=== PATIENT | male | born 1955 | race Caucasian/White ===

== ENCOUNTER 2016-06-03 11:40 | Inpatient (IN) | payer BC ==
--- NOTE | 2016-06-03 12:04 | HP ---
SUPERVISING PHYSICIAN: Edmar Holland M.D. CHIEF COMPLAINT: Coughing and congestion. HISTORY OF PRESENT ILLNESS: This is a 61 year-old male patient who was being seen in Dr. Holland' office today. On 05/25/16, he saw the Nurse Practitioner in clinic and was given steroids and antibiotics. He did not get any better and he has progressively worsened to the point that his coughing and congestion is keeping his up at night, plus he says he is very weak and having a very difficult time breathing. Dr. Holland sent him over to the hospital for direct admission. At [facility], his WBCs were 14.2, hemoglobin 11.5, hematocrit 34.2. Flu A and B were negative. A chest x-ray was done. He was admitted for pneumonitis with previously failed outpatient therapy with steroids and antibiotics. PAST MEDICAL HISTORY: 1. Congestive heart failure of unknown etiology with a ejection fraction of 50 %. 2. Diabetes. 3. Gastroparesis. 4. Hyperlipidemia. 5. Hypertension. 6. Coronary artery disease. 7. Chronic renal failure. 8. Rheumatoid arthritis. PAST SURGICAL HISTORY: 1. Coronary artery bypass in 2008. 2. Back surgery in 1988. 3. Basal cell skin cancer removal in 2011. 4. Glaucoma surgery in 2013. OUTPATIENT MEDICATIONS: Per the EMR and awaiting verification. ALLERGIES: NONE, BUT HE DOES HAVE AN ADVERSE REACTION TO KIMBERLYN INHIBITORS WHICH PRODUCES A COUGH. SOCIAL HISTORY: He is an electric motor termite technician. He is . He has one daughter. He denies any ETOH, tobacco or illicit drug use. REVIEW OF SYSTEMS: GENERAL: He complains of fever, fatigue but denies chills and any weight changes. HEENT: Complains of changes in the way food tastes, nasal congestion and postnasal drip. Denies any vision changes, ear pain or sore throat. RESPIRATORY: As per the history of present illness. CARDIAC: Denies chest pain, tachycardia or palpitations. GASTROINTESTINAL: Denies nausea , vomiting, diarrhea, constipation or abdominal pain. NEUROLOGIC: Denies dizziness, headaches or seizures. EXTREMITIES: Denies any swelling. PHYSICAL EXAMINATION: GENERAL: This is a 61 year-old male patient who is sitting up in his hospital bed. He appears minimally ill. HEENT: Normocephalic and atraumatic. Pupils are equal and reactive. Oropharynx is clear. Oral mucous membranes are moist. NECK: Supple without mass. CHEST: He has coarse breath sounds throughout as well as rhonchi and diffuse expiratory wheezing. CARDIOVASCULAR: Regular rate and rhythm. ABDOMEN: Soft, nondistended, non-tender. Bowel sounds are positive. EXTREMITIES: No cyanosis, clubbing or edema. NEUROLOGIC: He is awake, alert and oriented times three. LABORATORY AND FILMS: As per the History of Present Illness. ASSESSMENT: 1. Pneumonitis with failed outpatient treatment including steroids and antibiotics. 2. Cough and congestion. 3. Leukocytosis. 4. Diabetes. 5. Hypertension. 6. Congestive heart failure with unknown etiology and an ejection fraction of 50% in 2009. 7. History of chronic renal insufficiency. PLAN: We will admit the patient to the hospital. He will be given aggressive pulmonary toilet and DuoNeb breathing treatments. I will start him on Levaquin IV antibiotics. I will hold off on the steroids for now and hopefully he will not need them with the aggressive pulmonary toilet. I have also started Mucinex. He is on Tresiba long-acting insulin and he does very well on it. He usually takes about 60 units at night. After a lengthy discussion with him about his blood sugars, I will given him 40 units of Tresiba tonight and we will also place him on our sliding scale insulin protocol. Will restart his home medications with the exception of his Humalog and the full dosing of his Tresiba. I have ordered labs and a chest x-ray for in the morning. We will continue to monitor the patient closely and followup as needed. Dr. Holland is the collaborating physician available for consultation. #[id number] [facility]
[2016-06-03] MEDS ORDERED: DEXTROSE 50% 25 GM/50 ML SYG IV PRN (12:47)
[2016-06-03] MEDS ORDERED: GLUCAGON INJ 1 MG VIAL SUBCU PRN (12:47)
[2016-06-03] MEDS ORDERED: SODIUM CHLORIDE 0.9% (FLUSH) 10 ML SYG IV PRN (12:53)
[2016-06-03] MEDS ORDERED: ALBUTEROL SULFATE 2.5 MG/3 ML VIAL NEB PRN (12:53)
[2016-06-03] MEDS ORDERED: ACETAMINOPHEN 325 MG TAB PO PRN (12:53)
[2016-06-03] MEDS ORDERED: IV SET AND CAP CHANGE INJ INJ SCH (13:00)
[2016-06-03] MEDS: IPRATROPIUM/ALBUTEROL 3 ML VIAL INH SCH ×3 (13:49→20:30)
[2016-06-03] MEDS: INSULIN LISPRO 100 UNITS/ML PEN SUBCU SCH ×2 (17:08→21:17)
[2016-06-03] MEDS: CLOPIDOGREL 75 MG TAB PO SCH ×2 (18:15→18:26)
[2016-06-03] MEDS ORDERED: METOPROLOL TARTRATE 50 MG TAB PO ONE ×2 (19:23→23:00)
[2016-06-03] MEDS ORDERED: cloNIDine HCL 0.1 MG TAB PO ONE (19:24)
[2016-06-03] MEDS ORDERED: levoFLOXacin 500MG IV 100 ML IVPB ONE (19:34)
[2016-06-03] MEDS: levoFLOXacin 500MG IV 500 MG in PREMIX BAG 1 BAG IVPB SCH (19:36)
[2016-06-03] MEDS: ENOXAPARIN SODIUM 40 MG/0.4 ML SYG SUBCU SCH (19:37)
[2016-06-03] MEDS: PANTOPRAZOLE SODIUM IV 40 MG VIAL IV SCH (19:37)
[2016-06-03] MEDS ORDERED: NIFEdipine XL 30 MG TAB PO ONE (20:39)
[2016-06-03] MEDS ORDERED: sulfaSALAzine TAB 500 MG TAB ONE (20:39)
[2016-06-03] MEDS ORDERED: NIFEDIPINE 30 MG PO SCH (21:00)
[2016-06-03] MEDS ORDERED: NON-FORMULARY MEDICATION 1 EA MIS SUBCU ONE (21:00)
[2016-06-03] MEDS ORDERED: OPTH BOTH_EYES SCH (21:00)
[2016-06-03] MEDS ORDERED: [UNRECOGNIZED DRUG - OTHER] BOTH_EYES SCH (21:00)
[2016-06-03] MEDS ORDERED: LATANOPROST 0.005% BOTH_EYES SCH (21:00)
[2016-06-03] MEDS: TEMAZEPAM 15 MG CAP PO SCH (21:07)
[2016-06-03] MEDS: guaiFENesin ER TAB 600 MG TAB PO SCH (21:07)
[2016-06-03] MEDS: SODIUM CHLORIDE 0.9% (FLUSH) 10 ML SYG IV SCH (21:12)
[2016-06-03] MEDS: SULFADIAZINE 500 MG PO SCH (21:16)
[2016-06-04] MEDS: IPRATROPIUM/ALBUTEROL 3 ML VIAL INH SCH ×6 (00:45→20:35)
[2016-06-04] MEDS: INSULIN LISPRO 100 UNITS/ML PEN SUBCU SCH ×5 (07:33→18:01)
[2016-06-04] MEDS ORDERED: POTASSIUM CHLORIDE 20 MEQ TAB PO ONE (07:57)
[2016-06-04] MEDS ORDERED: ATENOLOL 25 MG TAB ONE (08:25)
[2016-06-04] MEDS ORDERED: BIFIDOBACTERIUM INFANTIS 4 MG CAP ONE (08:25)
[2016-06-04] MEDS ORDERED: NIFEdipine XL 30 MG TAB PO SCH (09:00)
[2016-06-04] MEDS ORDERED: FENOFIBRATE 48 MG PO SCH ×2 (09:00→22:00)
[2016-06-04] MEDS: CLOPIDOGREL 75 MG TAB PO SCH (09:45)
[2016-06-04] MEDS: METOPROLOL TARTRATE 50 MG TAB PO SCH ×3 (09:45→22:23)
[2016-06-04] MEDS: guaiFENesin ER TAB 600 MG TAB PO SCH ×2 (09:45→22:22)
[2016-06-04] MEDS: ASPIRIN EC 81 MG TAB PO SCH (09:45)
[2016-06-04] MEDS: SODIUM CHLORIDE 0.9% (FLUSH) 10 ML SYG IV SCH ×2 (09:47→20:30)
[2016-06-04] MEDS: SULFADIAZINE 500 MG PO SCH ×2 (09:48→18:45)
[2016-06-04] MEDS ORDERED: levoFLOXacin 500MG IV 100 ML IVPB ONE (15:10)
[2016-06-04] MEDS: LOSARTAN POTASSIUM 100 MG TAB PO SCH (17:46)
[2016-06-04] MEDS: levoFLOXacin 500MG IV 500 MG in PREMIX BAG 1 BAG IVPB SCH (18:34)
[2016-06-04] MEDS: NIFEdipine XL 30 MG TAB PO SCH (18:34)
[2016-06-04] MEDS: PANTOPRAZOLE SODIUM IV 40 MG VIAL IV SCH (20:29)
[2016-06-04] MEDS: ENOXAPARIN SODIUM 40 MG/0.4 ML SYG SUBCU SCH (20:30)
[2016-06-04] MEDS ORDERED: OPTH BOTH_EYES SCH (21:00)
[2016-06-04] MEDS ORDERED: NON-FORMULARY MEDICATION 1 EA MIS SUBCU SCH (21:00)
[2016-06-04] MEDS ORDERED: LATANOPROST 0.005% BOTH_EYES SCH (21:00)
[2016-06-04] MEDS: TEMAZEPAM 15 MG CAP PO SCH (22:24)
[2016-06-04] MEDS ORDERED: HYDROcodone 10MG/APAP 325MG 1 EA TAB PO ONE (22:28)
--- NOTE | 2016-06-04 23:12 | PCM.CORE ---
Physician DVT/VTE - Prophylaxis Currently: Patient already on anticoagulation therapy - Nurse DVT Assessment & Total Each Risk Factor Represents 3 Points: Medical PT with Hx of ID, CHF, Severe infection/sepsis Each Risk Factor Represents 2 Points: Age 60-74 DVT Assessment Score: 5 - 5 or more Very High Risk Treatments: Early Ambulation *, Sequential Compression Device
[2016-06-04] MEDS ORDERED: CLOPIDOGREL 75 MG TAB ONE (23:34)
[2016-06-05] MEDS: IPRATROPIUM/ALBUTEROL 3 ML VIAL INH SCH ×3 (00:30→08:28)
[2016-06-05 04:18] VITALS: TEMP 97.9
[2016-06-05] MEDS: NIFEdipine XL 30 MG TAB PO SCH (06:06)
[2016-06-05] MEDS: METOPROLOL TARTRATE 50 MG TAB PO SCH (06:07)
[2016-06-05] MEDS: SULFADIAZINE 500 MG PO SCH (06:07)
[2016-06-05] MEDS ORDERED: CLOPIDOGREL 75 MG TAB PO SCH (07:00)
--- NOTE | 2016-06-05 07:00 | RAD ---
EXAM: Two view chest. INDICATION: Chest pain. COMPARISON: Chest x-ray: 06/04/2016. FINDINGS: Cardiac silhouette: Unremarkable. Crista: Unremarkable. Lobar consolidation: None.Pleural effusion: None.Pneumothorax: None.Other: Median sternotomy wires are noted Bones: Unremarkable. Other: None. IMPRESSION: 1. No acute cardiopulmonary process. Electronically signed by: Almas Salcedo MD 06/05/2016 6:59 AM LIQUID WASTE TREATMENT PLANT OPERATOR
[2016-06-05 07:29] VITALS: BP 181/95; O2SAT 97
[2016-06-05] MEDS: INSULIN LISPRO 100 UNITS/ML PEN SUBCU SCH (07:33)
--- NOTE | 2016-06-05 08:47 | PN ---
SUPERVISING PHYSICIAN: Edmar Holland MD DATE: 06/04/16 SUBJECTIVE: The patient is sitting up in his bed. He still complains of coughing a lot as well as coughing up quite a bit of sputum but he does report that he feels much better today. He denies any chest pain, abdominal pain, he does not like the food that he is eating and his blood sugars have been very labile but every time he is sick he says he has the same problem. OBJECTIVE: VITAL SIGNS: He is afebrile. Heart rate 64, blood pressure 165/85, respiratory rate 20, 02 saturation 92% on room air. RESPIRATORY: Bilateral scattered rhonchi but there is no expiratory wheezing. CARDIAC: Regular rate and rhythm. ABDOMEN: Soft, nondistended, non-tender. Bowel sounds are positive. EXTREMITIES: No cyanosis, clubbing, or edema. NEUROLOGICAL: He is awake, alert, and oriented x3. LABORATORY: WBC 9.3, hemoglobin 11.8, hematocrit 35.1, potassium 3.2, creatinine 1.46, glucose 60. Preliminary blood cultures show no growth after 24 hours. All other labs and films have been reviewed via the EMR. ASSESSMENT: 1. Pneumonitis with failed outpatient treatment including steroids and antibiotics. 2. Cough and congestion. 3. Leukocytosis that has improved. 4. Diabetes. 5. Hypertension. 6. Congestive heart failure with unknown etiology and an ejection fraction of 50% in 2008. 7. History of chronic renal insufficiency. PLAN: I have given him some additional potassium this morning. He was given 40 units of his Tresiba last night and his usual dosing is 60 but he is not eating very well here at the hospital. Tonight we will give him 50 of Tresiba, I will also add back his routine Humalog insulin before his meals. His normal dosing is 25 and due to his poor appetite we will do 20 units before meals. He is improving on a daily basis. We will ambulate him, make sure that his oxygen saturations do not fall. We will do an ambulation study in the morning and make sure his titrations do not drop. Hopefully, he can go home tomorrow on a few additional days of Levaquin. He will need close followup with Dr. Holland. I will repeat his lab and x-ray in the morning. We will continue to monitor the patient closely and followup as needed. #[id number] [facility]
[2016-06-05] MEDS ORDERED: hydroCHLOROthiazide 12.5 MG CAP PO SCH (09:00)
[2016-06-05] MEDS: LOSARTAN POTASSIUM 100 MG TAB PO SCH (09:51)
[2016-06-05] MEDS: ASPIRIN EC 81 MG TAB PO SCH (09:51)
[2016-06-05] MEDS: SODIUM CHLORIDE 0.9% (FLUSH) 10 ML SYG IV SCH (09:52)
[2016-06-05] MEDS: guaiFENesin ER TAB 600 MG TAB PO SCH (09:52)
--- NOTE | 2016-06-06 13:59 | DS ---
SUPERVISING PHYSICIAN: Kelvin Nunez M.D. DISCHARGE DIAGNOSIS: 1. Pneumonitis/bronchitis having failed outpatient treatment including steroids and antibiotics. 2. Cough and congestion secondary to number 1. 3. Leukocytosis secondary to number 1, resolved. 4. Diabetes mellitus type 2. 5. Hypertension. 6. Congestive heart failure with unknown etiology with an ejection fraction of 50% last noted in 2008. 7. History of chronic renal insufficiency. HISTORY OF PRESENT ILLNESS: Mr. Wolf is a 61 year-old male patient that was admitted on 06/03/16. He was seen in Dr. Holland' office on 05/25/16 by the Nurse Practitioner in clinic and was given steroids and antibiotics. He had not gotten any better and has progressively worsened to the point that his coughing and congestion is keeping his up all night, plus he noted he was very weak and having a very difficult time breathing. He was seen in Dr. Holland ' office who sent him over to the hospital for direct admission. At [facility] , his white count was 14.2, hemoglobin 11.5, hematocrit 34.2. Flu A and B were negative. A chest x-ray was done. He was admitted in stable condition for having failed outpatient treatment for pneumonitis/bronchitis having been on steroids and antibiotics. LABORATORY: On admission, his white count was 9.3, at discharge it stabilized and was 7.9, hemoglobin and hematocrit were both stable at 10.7 and 32.1. Platelet count was within normal limits as well as his differential showed no left shift. Chemistries on admission showed a lot potassium at 3.2 with BUN 12 , creatinine 1.4, glucose 60. Liver functions showed to be within normal limits. Through the admission and treatment, he did show improvement in electrolytes. At time of discharge, his electrolytes normalized. Potassium was 3.9, BUN and creatinine were stable at 14 and 1.45. Glucoses did show elevation secondary to his corticosteroids after he was started on his home medications and management did show improvement, at time of discharge was 144. Highest glucose noted was 375 with the lowest being 43. MICROBIOLOGY: He had 2 sets of blood cultures that remained negative at 48 hours at discharge. RADIOLOGY: He had a chest x-ray on admission to the Medical/Surgical floor and per radiology interpretation showed no acute cardiopulmonary processes. No pneumothorax. No consolidations or pleural effusions. HOSPITAL COURSE: Mr. Wolf is a 61 year-old male patient that recommended from Dr. Holland' office as noted in the History of Present Illness, having failed to respond to outpatient treatment plan for pneumonitis/ bronchitis with steroids and antibiotics. He was admitted in stable condition and started on aggressive pulmonary toiletry with DuoNeb breathing treatments. He was also started on Levaquin. No additional steroids were administered. He was also on Tresiba long-acting insulin as well as was administering 40 and 60 units, and on a sliding scale. He did well with aggressive pulmonary hygiene. Initially vital signs on admission showed him to be satting 95% on room air during treatment and hospitalization. At time of discharge, he was satting 97% on room air. Blood pressure was somewhat elevated at discharge at 181/95. Respirations were 18. He was afebrile through the entire hospitalization stay. On discharge, he was felt clinically well enough to be discharged for continuation as an outpatient. PLAN: Mr. Wolf was discharged to have close clinical followup with Dr. Holland in 7 days or earlier if needed. He was instructed to call Dr. Holland' office on Wednesday to have a followup appointment scheduled. He was instructed to resume all of his home medications as previously started and to start new medications to include continued Levaquin and Albuterol nebulizer treatments. He was to utilize his nebulizer as instructed, continue with his pulmonary exercises to include IS to help increase his lung function. He was told to return to the hospital should he have worsening or no improvement in his symptoms. At time of discharge, he was stable. New prescriptions include: 1. Levaquin 500 mg, #8. 2. Albuterol 2.5 mg nebulizer as needed, #25. All other medications as started prior to admission were continued with no modifications. He was discharged in stable condition. #[id number] [facility]
--- NOTE | 2016-06-11 14:09 | RAD ---
EXAM: Two view chest. INDICATION: Chest pain. COMPARISON: Chest x-ray: None. FINDINGS: Cardiac silhouette: Unremarkable. Crista: Unremarkable. Lobar consolidation: None.Pleural effusion: None.Pneumothorax: None.Other: None. Bones: Unremarkable. Other: None. IMPRESSION: 1. No acute cardiopulmonary process. Electronically signed by: Almas Salcedo MD 06/04/2016 7:07 AM OFFICE MESSENGER HELPER
--- NOTE | 2016-07-05 23:46 | RAD ---
EXAM: Two view chest. INDICATION: Chest pain. COMPARISON: Chest x-ray: 06/04/2016. FINDINGS: Cardiac silhouette: Unremarkable. Crista: Unremarkable. Lobar consolidation: None.Pleural effusion: None.Pneumothorax: None.Other: Median sternotomy wires are noted Bones: Unremarkable. Other: None. IMPRESSION: 1. No acute cardiopulmonary process. Electronically signed by: Almas Salcedo MD 06/05/2016 6:59 AM GRADING MACHINE FEEDER
--- NOTE | 2016-07-06 00:06 | RAD ---
EXAM: Two view chest. INDICATION: Chest pain. COMPARISON: Chest x-ray: 06/04/2016. FINDINGS: Cardiac silhouette: Unremarkable. Crista: Unremarkable. Lobar consolidation: None.Pleural effusion: None.Pneumothorax: None.Other: Median sternotomy wires are noted Bones: Unremarkable. Other: None. IMPRESSION: 1. No acute cardiopulmonary process. Electronically signed by: Almas Salcedo MD 06/05/2016 6:59 AM INSTRUMENTAL MUSICIAN
--- NOTE | 2016-07-06 00:18 | RAD ---
EXAM: Two view chest. INDICATION: Chest pain. COMPARISON: Chest x-ray: 06/04/2016. FINDINGS: Cardiac silhouette: Unremarkable. Crista: Unremarkable. Lobar consolidation: None.Pleural effusion: None.Pneumothorax: None.Other: Median sternotomy wires are noted Bones: Unremarkable. Other: None. IMPRESSION: 1. No acute cardiopulmonary process. Electronically signed by: Almas Salcedo MD 06/05/2016 6:59 AM BELT PICKER
--- NOTE | 2016-07-06 00:35 | RAD ---
EXAM: Two view chest. INDICATION: Chest pain. COMPARISON: Chest x-ray: 06/04/2016. FINDINGS: Cardiac silhouette: Unremarkable. Crista: Unremarkable. Lobar consolidation: None.Pleural effusion: None.Pneumothorax: None.Other: Median sternotomy wires are noted Bones: Unremarkable. Other: None. IMPRESSION: 1. No acute cardiopulmonary process. Electronically signed by: Almas Salcedo MD 06/05/2016 6:59 AM MUD CLEANER OPERATOR
== END 2016-06-05 10:56 | disposition home or self-care (01) | DRG 194 ==
LOC: MS 11:40
PROVIDERS: ADMIT Family Medicine; ATTEND Nurse Practitioner Family
DX: J18.9 Pneumonia, unspecified organism (principal); I13.0 Hypertensive heart and chronic kidney disease with heart failure and stage 1 through stage 4 chronic kidney disease, or unspecified chronic kidney disease; I50.9 Heart failure, unspecified; N18.9 Chronic kidney disease, unspecified; E11.43 Type 2 diabetes mellitus with diabetic autonomic (poly)neuropathy; K31.84 Gastroparesis; E78.5 Hyperlipidemia, unspecified; I25.10 Atherosclerotic heart disease of native coronary artery without angina pectoris; M06.9 Rheumatoid arthritis, unspecified; Z95.1 Presence of aortocoronary bypass graft

== ENCOUNTER → 2017-03-10 | Outpatient (CLI) | payer BC | LOC: GMAJ 11:01 | PROVIDERS: ATTEND Family Medicine | DX: R53.82 Chronic fatigue, unspecified (principal); M06.9 Rheumatoid arthritis, unspecified; I10 Essential (primary) hypertension ==

== ENCOUNTER → 2017-08-19 | Outpatient (CLI) | payer BC | LOC: GMAJ 10:13 | PROVIDERS: ATTEND Family Medicine | DX: E03.9 Hypothyroidism, unspecified (principal) ==

== ENCOUNTER → 2018-01-18 | Outpatient (CLI) | payer BC | LOC: GMAJ 10:47 | PROVIDERS: ATTEND Family Medicine | DX: Z00.00 Encounter for general adult medical examination without abnormal findings (principal) ==

== ENCOUNTER → 2018-06-07 | Outpatient (CLI) | payer BC | LOC: GMAJ 10:21 | PROVIDERS: ATTEND Family Medicine | DX: E03.9 Hypothyroidism, unspecified (principal) ==

== ENCOUNTER → 2018-06-24 | Outpatient (CLI) | payer BC ==
--- NOTE | 2018-06-26 14:59 | US ---
EXAM DESCRIPTION: Renal: Ultrasound. CLINICAL HISTORY: 63 years Male CKD STAGE 4 COMPARISON: Bilateral renal arterial Doppler evaluation on the same visit. TECHNIQUE: Transcutaneous scanning: Two-dimensional and Doppler modes. FINDINGS: Right kidney measures 9.4 x 5.1 x 4.5 cm; mid-renal cortical thickness 12 mm . Normal cortical echogenicity. No hydronephrosis No echogenic stones. Smooth contour of the kidney with no perinephric fluid. Normal vascularity. Proximal ureter not visualized. Left kidney measures 10.8 x 5.5 x 5.1 cm; mid-renal cortical thickness 13 mm. Slightly increased cortical echogenicity. No hydronephrosis. No echogenic stones. Smooth contour of the kidney with no perinephric fluid. Normal vascularity.. Proximal ureter not visualized. Urinary bladder was visualized. 248 mL volume. Ureteral jet in the bladder seen by Doppler. No post void images. Abdominal aorta: Normal caliber from the proximal segment to the distal bifurcation. IMPRESSION: 1. Normal size of the bilateral kidneys with minimal cortical thinning. Slightly increased echogenicity of the left renal cortex. Echogenicity less than the liver. No hydronephrosis or perinephric fluid. 2. Urinary bladder visualized with bilaterally ureteral jets by Doppler. Post void volume not determined. Ureters not visualized. Normal caliber of the aorta. Electronically signed by: Bry Ramirez MD 06/26/2018 2:56 PM TRAIN INSPECTOR
== END ==
LOC: US 09:04
PROVIDERS: ATTEND Internal Medicine Nephrology
DX: N18.4 Chronic kidney disease, stage 4 (severe) (principal)

== ENCOUNTER → 2018-06-27 | Outpatient (CLI) | payer BC | LOC: LAB.O 08:52 | PROVIDERS: ATTEND Internal Medicine Nephrology | DX: I12.9 Hypertensive chronic kidney disease with stage 1 through stage 4 chronic kidney disease, or unspecified chronic kidney disease (principal); N18.4 Chronic kidney disease, stage 4 (severe) ==

== ENCOUNTER → 2018-10-19 | Outpatient (CLI) | payer BC | LOC: GMAJ 10:28 | PROVIDERS: ATTEND Family Medicine | DX: E03.9 Hypothyroidism, unspecified (principal); I10 Essential (primary) hypertension; E78.2 Mixed hyperlipidemia; E11.9 Type 2 diabetes mellitus without complications; I50.9 Heart failure, unspecified ==

== ENCOUNTER → 2019-09-15 | Outpatient (CLI) | payer BC | LOC: GMAJ 11:23 | PROVIDERS: ATTEND Family Medicine | DX: M06.9 Rheumatoid arthritis, unspecified (principal); E03.9 Hypothyroidism, unspecified; I50.9 Heart failure, unspecified ==

== ENCOUNTER → 2020-05-28 | Outpatient (CLI) | payer BC | LOC: GMAJ 12:00 | PROVIDERS: ATTEND Family Medicine | DX: E03.9 Hypothyroidism, unspecified (principal) ==